=== PATIENT | male | born 1965 | race Caucasian/White ===

== ENCOUNTER 2019-03-28 16:50 | Emergency (ER) | payer MEDICAID ==
[~2019-03-28] VITALS: Ht 157.5 cm; Wt 88.5 kg
[2019-03-28 16:58] VITALS: BP_SYST 145
--- NOTE | 2019-03-28 17:04 | NUR ---
Patient to ER bed 08 to gown for evaluation. Side rails up.
--- NOTE | 2019-03-28 17:06 | NUR ---
Note pamela in EDM - 03/28/19 at 1714 by [email or web address] Pt brought by self ,ambulatory, temp 100.1, A&Ox4, pt presents to ER with C/o hematuria, right abd/flank pain 4/10, skin pink and warm afebrile, respiration seven and unlabored , will cont to [facility].
--- NOTE | 2019-03-28 17:06 | NUR ---
Pt brought by self ,ambulatory, temp 100.1, A&Ox4, pt presents to ER with c/o hematuria, right abd/flank pain 4/10, skin pink and warm , respirations even and unlabored , will cont to monitor.
--- NOTE | 2019-03-28 17:15 | NUR ---
Dr Lopez at bedside examining patient
[2019-03-28] MEDS: KETOROLAC TROMETHAMINE 60 MG/2 ML VIAL IM ONE (17:24)
[2019-03-28 17:46] LABS: BASOPHILS # (AUTO) 0.1 K/uL (0.0-0.2); BASOPHILS % (AUTO) 0.7 % (0.0-2.0); EOSINOPHILS # (AUTO) 0.2 K/uL (0.0-0.4); EOSINOPHILS % (AUTO) 1.9 % (0.0-4.0); HEMATOCRIT 47.8 % (36-54); HEMOGLOBIN 15.9 g/dL (14.0-18.0); LYMPHOCYTES # (AUTO) 1.8 K/uL (1.0-5.5); LYMPHOCYTES % (AUTO) 21.8 % (20.5-51.5); MEAN CORPUSCULAR HEMOGLOBIN 30 pg (27-31); MEAN CORPUSCULAR HGB CONC 33 % (32-36); MEAN CORPUSCULAR VOLUME 89 fL (79.0-98.0); MONOCYTES # (AUTO) 0.8 K/uL (0.0-1.0); MONOCYTES % (AUTO) 9.3 % (1.7-9.3); NEUTROPHILS # (AUTO) 5.4 K/uL (1.8-7.7); NEUTROPHILS % (AUTO) 66.3 % (40.0-70.0); PLATELET COUNT (AUTO) 164 K/uL (130-430); RED BLOOD CELL COUNT(AUTO) 5.35 MIL/uL (4.2-6.2); RED CELL DISTRIBUTION WIDTH 14.6 % (9.0-15.0); WHITE BLOOD COUNT (AUTO) 8.1 K/uL (4.8-10.8)
[2019-03-28 17:58] LABS: CALCIUM 9.2 mg/dL (8.4-11.0); CREATININE 1.23 mg/dL (0.55-1.30); POTASSIUM 3.6 mmol/L (3.5-5.1)
[2019-03-28 18:04] LABS: TOTAL BILIRUBIN 0.4 mg/dL (0.0-1.0)
--- NOTE | 2019-03-28 18:25 | NUR ---
Pt denies pain after toradol administration, pt resting in bed at this time, respirations even and unlabored.
--- NOTE | 2019-03-28 18:25 | NUR ---
Aron santiago in [facility] - 03/28/19 at 1840 by JOSE Pt denies pain after Toradol administration, pt resting in bed at this time.
[2019-03-28 18:56] VITALS: BP_SYST 142
--- NOTE | 2019-03-28 18:57 | NUR ---
Patient given written and verbal discharge instructions and verbalizes understanding. ER MD discussed with patient the results and treatment provided. Patient in stable condition. ID arm band removed. Rx of Naproxen and Tramadol given. Patient educated on pain management and to follow up with PMD. Pain Scale 0/10. Opportunity for questions provided and answered. Medication side effect fact sheet provided.
== END 2019-03-28 18:56 | disposition home or self-care (01) ==
LOC: SED 16:50
DX: R31.9 Hematuria, unspecified (principal); R03.0 Elevated blood-pressure reading, without diagnosis of hypertension
CPT/HCPCS: 36415; 74176; 80053; 81002; 83690; 85025; 96372; 99283; J1885

== ENCOUNTER 2019-06-05 03:01 | Emergency (ER) | payer MEDICAID ==
[~2019-06-05] VITALS: Ht 167.6 cm; Wt 81.6 kg
[2019-06-05 03:05] VITALS: BP_SYST 150
[2019-06-05] MEDS ORDERED: KETOROLAC TROMETHAMINE 30 MG VIAL IM ONE (03:30)
[2019-06-05 03:40] LABS: BILIRUBIN,URINE NEGATIVE (NEGATIVE); BLOOD, URINE 3+ (NEGATIVE); CLARITY/URINE CLEAR (CLEAR); COLOR,URINE YELLOW (YELLOW); GLUCOSE,URINE NEGATIVE (NEGATIVE); KETONES,URINE NEGATIVE (NEGATIVE); LEUKOCYTE ESTERASE ,URINE NEGATIVE (NEGATIVE); NITRITE, URINE NEGATIVE (NEGATIVE); PROTEIN URINE TRACE (NEGATIVE); UROBILINOGEN,URINE 0.2 (0.2-1.0)
[2019-06-05 04:24] LABS: BACTERIA,URINE FEW /HPF (None Seen); RBC,URINE 20-50 /HPF (0-3); WBC,URINE 0-3 /HPF (0-3)
[2019-06-05] MEDS ORDERED: NACL 0.9% 1,000 ML IV ONE (05:06)
[2019-06-05 05:59] LABS: BASOPHILS # (AUTO) 0.1 K/uL (0.0-0.2); BASOPHILS % (AUTO) 0.6 % (0.0-2.0); EOSINOPHILS # (AUTO) 0.3 K/uL (0.0-0.4); EOSINOPHILS % (AUTO) 2.8 % (0.0-4.0); HEMATOCRIT 46.7 % (36-54); HEMOGLOBIN 15.7 g/dL (14.0-18.0); LYMPHOCYTES # (AUTO) 2.4 K/uL (1.0-5.5); LYMPHOCYTES % (AUTO) 22.3 % (20.5-51.5); MEAN CORPUSCULAR HEMOGLOBIN 30 pg (27-31); MEAN CORPUSCULAR HGB CONC 34 % (32-36); MEAN CORPUSCULAR VOLUME 90 fL (79.0-98.0); MONOCYTES % (AUTO) 9.8 % (1.7-9.3); NEUTROPHILS # (AUTO) 6.8 K/uL (1.8-7.7); NEUTROPHILS % (AUTO) 64.5 % (40.0-70.0); PLATELET COUNT (AUTO) 148 K/uL (130-430); RED BLOOD CELL COUNT(AUTO) 5.21 MIL/uL (4.2-6.2); WHITE BLOOD COUNT (AUTO) 10.6 K/uL (4.8-10.8)
[2019-06-05] MEDS ORDERED: LISI10TA5 PO (06:03)
[2019-06-05] MEDS ORDERED: TAMS-11 PO (06:03)
[2019-06-05 06:12] LABS: ALBUMIN 3.8 g/dL (3.4-4.8); CALCIUM 8.6 mg/dL (8.4-11.0); CREATININE 0.92 mg/dL (0.55-1.30); POTASSIUM 3.6 mmol/L (3.5-5.1); TOTAL BILIRUBIN 0.4 mg/dL (0.0-1.0)
[2019-06-05 12:00] VITALS: BP_SYST 137
== END 2019-06-05 11:55 | disposition short-term general hospital (02) ==
LOC: SED 03:01
DX: N13.2 Hydronephrosis with renal and ureteral calculous obstruction (principal)
CPT/HCPCS: 36415; 74176; 76770; 80053; 81000; 85025; 87040; 96372; 99285; J1885; J7030